=== PATIENT | female | born 1975 | race Caucasian/White ===

== ENCOUNTER 2021-02-18 21:18 | Emergency (ER) | payer OTHER ==
[~2021-02-18] VITALS: Ht 175.3 cm; Wt 79.8 kg
[2021-02-18 21:33] VITALS: BP 132/79
== END 2021-02-18 23:15 | disposition home or self-care (01) ==
LOC: ER 21:22
DX: K21.9 Gastro-esophageal reflux disease without esophagitis (principal); F41.9 Anxiety disorder, unspecified; F32.9 Major depressive disorder, single episode, unspecified

== ENCOUNTER 2023-09-28 15:35 | Emergency (ER) | payer MEDICAID, OTHER | END 2023-09-28 15:51 | disposition left against medical advice (07) | LOC: ER 15:37 | DX: R07.9 Chest pain, unspecified (principal); Z53.21 Procedure and treatment not carried out due to patient leaving prior to being seen by health care provider ==